=== PATIENT | female | born 1955 | race Hispanic/Latino ===

== ENCOUNTER → 2018-10-07 | Day surgery (SDC) | payer OTHER ==
[~2018-10-07] MED LIST: AMLODIPINE BESYL5 MG PO; ASPIRIN81 MG; ATORVASTATIN CA20 MG PO; FENTANYL CITRATE/PF 100MCG/2 ML INJ ONE; METFORMIN HCL500 MG PO; MIDAZOLAM HCL 2 MG/2 ML VIAL ONE; OR PHACO EYE KIT ONE; POVIDONE IODINE 5% (OPTH) 30 ML BTL ONE; PREOP PHACO EYE KIT ONE
--- OUTSIDE RECORDS SUMMARY | 2018-10-07 13:38 | XMS REPORT | CCD ---
Author Author Auto Generated Organization [facility] Address Unknown Phone Unavailable Care Team Providers Care Transport Truck Driver Name Role Phone Navin Mukherjee CP Allergies, Adverse Reactions, Alerts Substance Reaction Status NKDA Active Medications Medication Instructions Start Date End Date Status morphine Sulfate 2 mg, 1 mL, Route: IVP, Drug form: 08/05/2013 08/05/2013 Completed INJ, ONCE, Dosing Weight 66.818, kg, Priority: STAT, Start date: 08/05/13 21:41:00, Stop date: 08/05/13 21:41:00(Same as:MORPhine Sulfate) Vicodin 5/500 oral 1 tab, PO, Q4H, PRN, 14 tab, for 08/05/2013 Ordered tablet pain, Substitution Allowed, Maintenance, TAB Saline Flush 0.9% 5 mL, Route: IVP, Drug Form: INJ, 08/05/2013 08/06/2013 Discontinued Dosing Weight 66.818, kg, PRN, PRN Line Flush, Start date: 08/05/13 21:40:00, Duration: 24 hr, Stop date: 08/06/13 21:39:00(Same as: BD Posiflush) Vital Signs Most recent to oldest [Reference Range]: 1 2 Height 160.02 cm (08/05/2013 20:39:00) Temperature Oral [96.4-99.1 DegF] 98.3 DegF (08/05/2013 23:57:00) 98.2 DegF (08/05/2013 20:39:00) Systolic Blood Pressure [90-140 mmHg] 125 mmHg (08/05/2013 23:57:00) 128 mmHg (08/05/2013 20:39:00) Diastolic Blood Pressure [60-90 mmHg] 87 mmHg (08/05/2013 23:57:00) 85 mmHg (08/05/2013 20:39:00) Respiratory Rate [14-20 BRMIN] 18 BRMIN (08/05/2013 23:57:00) 18 BRMIN (08/05/2013 20:39:00) Peripheral Pulse Rate [60-100 bpm] 74 bpm (08/05/2013 23:57:00) 77 bpm (08/05/2013 20:39:00) Weight 66.818 kg (08/05/2013 20:39:00) Results URINALYSIS Most recent to oldest [Reference Range]: 1 UA Turbidity [Clear] Clear (08/05/2013 23:40:00) UA Color Ltyellow *NA* (08/05/2013 23:40:00) UA pH [5.0-8.0] 6.0 (08/05/2013 23:40:00) UA Spec Grav [<=1.030] 1.009 (08/05/2013 23:40:00) UA Glucose [Negative mg/dL] Negative mg/dL *NA* (08/05/2013 23:40:00) UA Blood [Negative] Negative (08/05/2013 23:40:00) UA Ketones [Negative mg/dL] Trace mg/dL *ABN* (08/05/2013 23:40:00) UA Protein [Negative mg/dL] Negative mg/dL (08/05/2013 23:40:00) UA Urobilinogen [0.1-1.0 mg/dL] <=1.0 mg/dL *NA* (08/05/2013 23:40:00) UA Bili [Negative] Negative *NA* (08/05/2013 23:40:00) UA Leuk Est [Negative] Moderate *ABN* (08/05/2013 23:40:00) UA Nitrite [Negative] Negative (08/05/2013 23:40:00) UA WBC [0-5 /HPF] 4 /HPF (08/05/2013 23:40:00) UA RBC [0-2 /HPF] 1 /HPF (08/05/2013 23:40:00) UA Bacteria [None Seen /HPF] Occasional /HPF *NA* (08/05/2013 23:40:00) UA Sq Epi [Few /LPF] Occasional /LPF *NA* (08/05/2013 23:40:00) UA Mucus [None Seen /LPF] Few /LPF *NA* (08/05/2013 23:40:00) CHEMISTRY Most recent to oldest [Reference Range]: 1 Sodium Lvl [135-145 mEq/L] 141 mEq/L (08/05/2013 22:00:00) Potassium Lvl [3.5-5.1 mEq/L] 3.8 mEq/L (08/05/2013 22:00:00) Chloride Lvl [95-109 mEq/L] 101 mEq/L (08/05/2013 22:00:00) CO2 [24-32 mEq/L] 31 mEq/L (08/05/2013 22:00:00) AGAP [10.0-20.0 mEq/L] 12.8 mEq/L (08/05/2013 22:00:00) Creatinine Lvl [0.5-1.4 mg/dL] 0.7 mg/dL (08/05/2013 22:00:00) eGFR 97 mL/min/1.73m2 1 *NA* (08/05/2013 22:00:00) BUN [7-22 mg/dL] 15 mg/dL (08/05/2013 22:00:00) B/C Ratio [6-25] 21 (08/05/2013 22:00:00) Glucose Lvl [70-99 mg/dL] 182 mg/dL 2 *HI* (08/05/2013 22:00:00) Total Protein [6.4-8.4 g/dL] 8.0 g/dL (08/05/2013 22:00:00) Albumin Lvl [3.5-5.0 g/dL] 4.3 g/dL (08/05/2013 22:00:00) Globulin [2.0-4.0 g/dL] 3.7 g/dL (08/05/2013 22:00:00) A/G Ratio [0.7-1.6] 1.2 (08/05/2013 22:00:00) Calcium Lvl [8.5-10.5 mg/dL] 9.4 mg/dL (08/05/2013 22:00:00) Phosphorus [2.5-4.5 mg/dL] 3.8 mg/dL (08/05/2013:00:00) Magnesium Lvl [1.8-2.4 mg/dL] 2.0 mg/dL (08/05/2013:00:00) ALT [0-65 unit/L] 23 unit/L (08/05/2013:00:00) AST [0-37 unit/L] 12 unit/L (08/05/2013:00:00) Alk Phos [39-136 unit/L] 117 unit/L (08/05/2013:00:00) Bili Total [0.2-1.3 mg/dL] 0.7 mg/dL (08/05/2013:00:00) Lipase Lvl [73-393 unit/L] 138 unit/L (08/05/2013:00:00) 1Result Comment: The eGFR is calculated using the CKD-EPI formula. In most young, healthy individuals the eGFR will be >90 mL/min/1.73m2. The eGFR declines with age. An eGFR of 60-89 may be normal in some populations, particularly the elderly, for whom the CKD-EPI formula has not been extensively validated. Use of the eGFR is not recommended in the following populations: Individuals with unstable creatinine concentrations, including patients and those with serious co-morbid conditions. Patients with extremes in muscle mass or diet. The data above are obtained from the National Kidney Disease Education Program ( NKDEP) which additionally recommends that when the eGFR is used in patients with extremes of body mass index for purposes of drug dosing, the eGFR should be mul tiplied by the estimated BMI. 2Interpretive Data: Adult reference range values reflect the clinical guidelines of the [place] [employer]. HEMATOLOGY Most recent to oldest [Reference Range]: 1 WBC [3.7-10.4 K/CMM] 6.8 K/CMM (08/05/2013 22:00:00) RBC [4.20-5.40 M/CMM] 5.12 M/CMM (08/05/2013:00:00) Hgb [12.0-16.0 g/dL] 15.1 g/dL (08/05/2013:00:00) Hct [36.0-48.0 %] 45.1 % (08/05/2013 22:00:00) MCV [81.0-99.0 fL] 88.0 fL (08/05/2013 22:00:00) MCH [27.0-31.0 pg] 29.5 pg (08/05/2013 22:00:00) MCHC [32.0-36.0 g/dL] 33.5 g/dL (08/05/2013 22:00:00) RDW [11.5-14.5 %] 13.1 % (08/05/2013 22:00:00) Platelet [133-450 K/CMM] 202 K/CMM (08/05/2013 22:00:00) MPV [7.4-10.4 fL] 8.7 fL (08/05/2013 22:00:00) Segs [45.0-75.0 %] 49.3 % (08/05/2013 22:00:00) Lymphocytes [20.0-40.0 %] 41.0 % *HI* (08/05/2013 22:00:00) Monocytes [2.0-12.0 %] 7.0 % (08/05/2013 22:00:00) Eosinophils [0.0-4.0 %] 2.2 % (08/05/2013 22:00:00) Basophils [0.0-1.0 %] 0.5 % (08/05/2013 22:00:00) Segs-Bands # [1.5-8.1 K/CMM] 3.4 K/CMM (08/05/2013 22:00:00) Lymphocytes # [1.0-5.5 K/CMM] 2.8 K/CMM (08/05/2013 22:00:00) Monocytes # [0.0-0.8 K/CMM] 0.5 K/CMM (08/05/2013 22:00:00) Eosinophils # [0.0-0.5 K/CMM] 0.1 K/CMM (08/05/2013 22:00:00) Basophils # [0.0-0.2 K/CMM] 0.0 K/CMM (08/05/2013 22:00:00) Procedures Procedures Date Related Diagnosis Emergency department visit for the evaluation and management 08/06/2013 00:00:00 of a patient, which requires these 3 valdes components: A detailed history; A detailed examination; and Medical decision making of moderate complexity. Counseling and/or coordination of care with o Injection or Infusion of Other Therapeutic or Prophylactic 08/05/2013 00:00:00 Substance Therapeutic, prophylactic, or diagnostic injection (specify 08/05/2013 00:00:00 substance or drug); intravenous push, single or initial substance/drug
--- OUTSIDE RECORDS SUMMARY | 2018-10-07 13:38 | XMS REPORT | CCD ---
Author Author Auto Generated Organization [facility] Address Unknown Phone Unavailable Care Team Providers Care Laundry Attendant Name Role Phone Navin Mukherjee CP Allergies, [...] values reflect the clinical guidelines of the [place] [employer]. HEMATOLOGY Most recent to oldest [...]
--- OUTSIDE RECORDS SUMMARY | 2018-10-07 13:38 | XMS REPORT ---
[facility] Address Unknown Phone Unavailable Care Team Providers Care Hardware Sales Assistant Name Role Phone Unavailable Unavailable Problems This patient has no known problems. Allergies, Adverse Reactions, Alerts This patient has no known allergies or adverse reactions. Medications This patient has no known medications. Results Test Description Test Time Test Comments Text Results Atomic Results Result Comments SCR MAMM BILATERAL JERSON CAD DIGITAL 2018-09-02 08:20:55 - SCR MAMM BILATERAL JERSON CAD DIGITALBILATERAL DIGITAL SCREENING MAMMOGRAM 3D/2D WITH CAD: 08/11/2018CLINICAL: Asymptomatic. Digital breast tomosynthesis was performed in addition to routine CC and MLO views. Current mammographic images were evaluated by either a [employer] M-Vu or a [employer] Image[employer]er CAD (computer aided detection system). Comparison is made to exams dated 03/04/2015 mammogram, 01/21 mammogram, and 03/19/2014 mammogram - [facility]. There are scattered fibroglandular tissues in both breasts. There is a benign intramammary node in both breasts. No suspicious mass, architectural distortion, malignant type calcification, or lymph node abnormality detected. Breast architecture is stable compared to prior exams.IMPRESSION: BENIGNThere is no mammographic evidence of malignancy. Resume annual screening mammography in one year. Idania kat/max:09/02/2018 08:20:55 Assemblies And Installations Inspector: Maddy MILLER, [facility]-FWletter sent: BIRADS 1-2 Normal Mammogram BI-RADS: 2 Benign
--- OUTSIDE RECORDS SUMMARY | 2018-10-07 13:38 | XMS REPORT | CCD ---
Author Author Auto Generated Organization [facility] Address Unknown Phone Unavailable Care Team Providers Care Weasand Trimmer Name Role Phone Navin Mukherjee CP Allergies, [...] values reflect the clinical guidelines of the [place] [employer]. HEMATOLOGY Most recent to oldest [...]
--- OUTSIDE RECORDS SUMMARY | 2018-10-07 13:38 | XMS REPORT | CCD ---
Author Author Auto Generated Organization [facility] Address Unknown Phone Unavailable Care Team Providers Care Hydrological Technical Officer Name Role Phone Navin Mukherjee CP Allergies, [...] values reflect the clinical guidelines of the [place] [employer]. HEMATOLOGY Most recent to oldest [...]
--- OUTSIDE RECORDS SUMMARY | 2018-10-07 13:38 | XMS REPORT | CCD ---
Author Author Auto Generated Organization [facility] Address Unknown Phone Unavailable Care Team Providers Care Home Health Care Coordinator Name Role Phone Navin Mukherjee CP Allergies, [...] values reflect the clinical guidelines of the [place] [employer]. HEMATOLOGY Most recent to oldest [...]
[2018-10-07 16:35] VITALS: BP 103/68
== END | disposition home or self-care (01) ==
LOC: OR 13:35
PROVIDERS: ATTEND Ophthalmology
DX: H25.12 Age-related nuclear cataract, left eye (principal); E11.9 Type 2 diabetes mellitus without complications; Z79.84 Long term (current) use of oral hypoglycemic drugs; I10 Essential (primary) hypertension; E78.5 Hyperlipidemia, unspecified
CPT/HCPCS: 36415; 66984; 82948; J2250; V2632